=== PATIENT | male | born 1980 | race Caucasian/White ===

== ENCOUNTER 2018-11-07 12:16 | Emergency (ER) | payer OTHER ==
[2018-11-07] MEDS: HYDROCODONE/APAP (5/325) TAB PO (15:03)
== END 2018-11-07 14:55 | disposition home or self-care (01) ==
LOC: FTE 12:16
DX: L05.01 Pilonidal cyst with abscess (principal); F17.210 Nicotine dependence, cigarettes, uncomplicated
CPT/HCPCS: 10080; 99283-25